=== PATIENT | female | born 1980 | race Caucasian/White ===

== ENCOUNTER 2016-04-20 08:27 | Emergency (ER) | payer MEDICAID ==
[~2016-04-20] VITALS: Ht 162.6 cm; Wt 74.4 kg
--- NOTE | 2016-04-20 08:33 | NUR ---
Pt to bed 5
[2016-04-20 08:39] VITALS: BP 128/70; PULSE 87; RESP 16; TEMP 97.5; O2SAT 100
--- NOTE | 2016-04-20 08:40 | NUR ---
Packing removed from left upper chest. Wound bed pink, no redness periwound, no drainage. Irrigated with 10cc NS.
--- NOTE | 2016-04-20 08:40 | NUR ---
Dr. Garcia at bedside for evaluation. No new packing needed per ER MD.
--- NOTE | 2016-04-20 08:50 | NUR ---
2x2 and large bandaid applied. Pt tolerated well.
--- NOTE | 2016-04-20 09:03 | NUR ---
Patient given written and verbal discharge instructions and verbalizes understanding. ER MD discussed with patient the results and treatment provided. Patient in stable condition. ID arm band removed. No Rx given. Patient educated on pain management and to follow up with PMD. Pain Scale 0/10. Opportunity for questions provided and answered.
[2016-04-20 09:04] VITALS: BP 128/70; PULSE 87; RESP 16; TEMP 97.5; O2SAT 100
== END 2016-04-20 09:04 | disposition home or self-care (01) ==
LOC: SED 08:27
DX: Z48.01 Encounter for change or removal of surgical wound dressing (principal); K80.80 Other cholelithiasis without obstruction
CPT/HCPCS: 96372; 99282

== ENCOUNTER 2017-09-14 23:49 | Emergency (ER) | payer MEDICAID ==
[~2017-09-14] VITALS: Ht 162.6 cm; Wt 75.7 kg
[2017-09-15] VITALS: BP_SYST 148
[2017-09-15 00:40] VITALS: BP_SYST 133
== END 2017-09-15 00:40 | disposition home or self-care (01) ==
LOC: SED 23:49
DX: L29.9 Pruritus, unspecified (principal); L50.8 Other urticaria; R21 Rash and other nonspecific skin eruption; K21.9 Gastro-esophageal reflux disease without esophagitis
CPT/HCPCS: 99283

== ENCOUNTER 2018-05-01 10:26 | Emergency (ER) | payer MEDICAID ==
[~2018-05-01] VITALS: Ht 162.6 cm; Wt 81.6 kg
[2018-05-01 10:37] VITALS: BP_SYST 136
[2018-05-01] MEDS ORDERED: IPRATROPIUM/ALBUTEROL SULFATE 3 ML AMPUL.NEB (DUONEB) ONE (11:57)
[2018-05-01] MEDS ORDERED: ALBUTEROL SULFATE 0.083% 2.5 MG/3 ML VIAL.NEB INH ONE (12:00)
[2018-05-01] MEDS ORDERED: PROMETHAZINE 6.25 MG/ CODEINE 10 MG/ 5 ML PO ONE (12:15)
[2018-05-01 12:40] VITALS: BP_SYST 130
== END 2018-05-01 12:40 | disposition home or self-care (01) ==
LOC: SED 10:26
DX: J06.9 Acute upper respiratory infection, unspecified (principal); K21.9 Gastro-esophageal reflux disease without esophagitis; R03.0 Elevated blood-pressure reading, without diagnosis of hypertension
CPT/HCPCS: 94640; 99283; J7620

== ENCOUNTER 2018-05-29 09:10 | Emergency (ER) | payer MEDICAID ==
[~2018-05-29] VITALS: Ht 162.6 cm; Wt 78.5 kg
[2018-05-29 09:16] VITALS: BP_SYST 147
[2018-05-29 10:45] VITALS: BP_SYST 147
== END 2018-05-29 10:45 | disposition home or self-care (01) ==
LOC: SED 09:10
DX: J18.8 Other pneumonia, unspecified organism (principal); K21.9 Gastro-esophageal reflux disease without esophagitis
CPT/HCPCS: 71045; 99283

== ENCOUNTER 2018-07-01 21:08 | Emergency (ER) | payer MEDICAID ==
[~2018-07-01] VITALS: Ht 162.6 cm; Wt 80.7 kg
[2018-07-01 21:10] VITALS: BP_SYST 121
== END 2018-07-01 23:00 | disposition left against medical advice (07) ==
LOC: SED 21:08
DX: M54.2 Cervicalgia (principal); M25.511 Pain in right shoulder; M79.602 Pain in left arm; Z53.21 Procedure and treatment not carried out due to patient leaving prior to being seen by health care provider; V43.52XA Car driver injured in collision with other type car in traffic accident, initial encounter; Y93.89 Activity, other specified; Y92.410 Unspecified street and highway as the place of occurrence of the external cause; Y99.8 Other external cause status